=== PATIENT | female | born 1995 | race Caucasian/White ===

== ENCOUNTER 2018-09-04 04:45 | Emergency (ER) | payer BC ==
[~2018-09-04] VITALS: Ht 165.1 cm; Wt 87.7 kg
[2018-09-04] MEDS ORDERED: BIRTH CONTROL (04:53)
[2018-09-04] MEDS ORDERED: ATIVAN 1MG T1 MG/TAB PO (05:09)
[2018-09-04] MEDS ORDERED: NORCO 325 MG-51 TAB PO (05:09)
[2018-09-04 06:44] VITALS: BP 148/90; PULSE 97; TEMP 97.4
== END 2018-09-04 06:45 | disposition home or self-care (01) ==
LOC: COL.ER 04:45
DX: M43.6 Torticollis (principal)
CPT/HCPCS: J1170; J2060